=== PATIENT | female | born 1930 | race Caucasian/White ===

== ENCOUNTER → 2017-02-08 | Outpatient (CLI) | payer OTHER ==
[~2017-02-08] MED LIST: AMLO10TA2 PO; ESTR0.3T PO; LEVO50TA5 PO; LOSA1TAB18 PO; LOVA10TA PO; OMEP-110 PO; OXYB5TAB7 PO
== END | disposition home or self-care (01) ==
LOC: RAD 15:24
PROVIDERS: ATTEND Internal Medicine
DX: G31.89 Other specified degenerative diseases of nervous system (principal); I67.82 Cerebral ischemia; R90.82 White matter disease, unspecified; H53.2 Diplopia
CPT/HCPCS: 70450

== ENCOUNTER 2017-06-18 12:44 | Inpatient (IN) | payer OTHER ==
[~2017-06-18] VITALS: Ht 162.6 cm; Wt 61.0 kg
[2017-06-18] MEDS ORDERED: SODIUM CHLORIDE FLUSH 10ML SYR IVF ONE (13:30)
[2017-06-18] MEDS ORDERED: ASPIRIN 81 MG TABLET CHEW PO ONE (13:30)
[2017-06-18 13:38] LABS: HEMATOCRIT 39.9 % (34.6-47.8); HEMOGLOBIN 13.6 g/dL (11.7-16.4); WHITE BLOOD COUNT 5.8 x10^3/uL (3.4-10)
[2017-06-18] MEDS ORDERED: ASPIRIN 81 MG TABLET CHEW ONE (13:42)
[2017-06-18 13:50] LABS: ASPARTATE AMINO TRANSFERASE 13 U/L (15-37); BLOOD UREA NITROGEN 13 mg/dL (7-18)
[2017-06-18 13:55] LABS: IS PT STATUS REG ER OR PRE ER? YES
[2017-06-18] MEDS ORDERED: LOSA100T6 PO (14:14)
[2017-06-18] MEDS ORDERED: NITROGLYCERIN SINGLE TAB 0.4 MG SL ONE ×2 (14:30→15:09)
[2017-06-18] MEDS ORDERED: OMNIPAQUE 350 MG/ML, 100ML BOTTLE ONE (15:51)
[2017-06-18] MEDS ORDERED: DOCUSATE 100 MG CAPSULE PO PRN (16:00)
[2017-06-18] MEDS ORDERED: POLYETHYLENE GLYCOL 17 GM PACKET PO PRN (16:00)
[2017-06-18] MEDS ORDERED: NITROGLYCERIN 0.4 MG BOTTLE (25 TABS) SL PRN (16:00)
[2017-06-18] MEDS ORDERED: LABETALOL 5MG/ML, 20ML IVPush PRN (16:00)
[2017-06-18] MEDS ORDERED: ACETAMINOPHEN 325 MG TABLET PO PRN (16:00)
[2017-06-18] MEDS ORDERED: HYDROcodone/APAP 5/325 TABLET PO PRN (16:00)
[2017-06-18] MEDS ORDERED: ENOXAPARIN 40 MG/0.4 ML SQ SCH (16:00)
[2017-06-18] MEDS ORDERED: morphine SULFATE 10 MG/ML, 1ML IVPush PRN (16:00)
[2017-06-18] MEDS ORDERED: ONDANSETRON 2MG/ML, 2ML IVPush PRN (16:00)
[2017-06-18] MEDS ORDERED: BISACODYL 10 MG SUPP PR PRN (16:00)
[2017-06-18 16:30] VITALS: BP 128/68
[2017-06-18 18:26] LABS: IS PT STATUS REG ER OR PRE ER? NO
[2017-06-18] MEDS ORDERED: SIMVASTATIN 5 MG TABLET PO SCH (21:00)
[2017-06-18 21:22] VITALS: BP 125/70
[2017-06-18] MEDS: SODIUM CHLORIDE FLUSH 10ML SYR IVF SCH (21:26)
[2017-06-19 00:48] VITALS: BP 103/58
[2017-06-19 00:52] LABS: IS PT STATUS REG ER OR PRE ER? NO
[2017-06-19] MEDS ORDERED: LEVOTHYROXINE 50 MCG TABLET PO SCH (06:00)
[2017-06-19] MEDS ORDERED: ASPIRIN 325 MG TABLET EC PO SCH (06:00)
[2017-06-19 07:30] VITALS: BP 133/69
[2017-06-19] MEDS ORDERED: REGADENOSON 0.4 MG/5 ML SYRINGE ONE (08:14)
[2017-06-19] MEDS: SODIUM CHLORIDE FLUSH 10ML SYR IVF SCH (08:36)
[2017-06-19] MEDS ORDERED: AMLODIPINE 5 MG TABLET PO SCH (09:00)
[2017-06-19] MEDS ORDERED: LOSARTAN 50MG TABLET PO SCH (09:00)
[2017-06-19] MEDS ORDERED: OXYBUTYNIN CHLORIDE 5 MG TABLET PO SCH (09:00)
== END 2017-06-19 15:07 | disposition home or self-care (01) | DRG 313 ==
LOC: ED 15:02 → EDIP 15:22 → 5SO 16:21
PROVIDERS: ADMIT Internal Medicine; ATTEND Internal Medicine
DX: R07.89 Other chest pain (principal); I11.9 Hypertensive heart disease without heart failure; E03.9 Hypothyroidism, unspecified; K21.9 Gastro-esophageal reflux disease without esophagitis; E78.00 Pure hypercholesterolemia, unspecified; E78.5 Hyperlipidemia, unspecified; R79.1 Abnormal coagulation profile; G89.29 Other chronic pain; M54.9 Dorsalgia, unspecified; M79.605 Pain in left leg; M79.602 Pain in left arm; Z82.49 Family history of ischemic heart disease and other diseases of the circulatory system
CPT/HCPCS: 36415; 71010; 71275; 78452; 80053; 80061; 84484; 85025; 85379; 93005; 93017; 99285; J1650; J2785; Q9967; A9502; C9898

== ENCOUNTER 2018-08-15 14:37 | Emergency (ER) | payer OTHER ==
[~2018-08-15] VITALS: Ht 162.6 cm; Wt 59.2 kg
[~2018-08-15 14:37] MED LIST changes: -AMLO10TA2 PO; +AMLO10TA6 PO; +LOSA100T7 PO; -LOSA1TAB18 PO; +LOSA1TAB25 PO
[2018-08-15 14:48] VITALS: BP 124/62
== END 2018-08-15 16:42 | disposition home or self-care (01) ==
LOC: ED 16:36
DX: S46.912A Strain of unspecified muscle, fascia and tendon at shoulder and upper arm level, left arm, initial encounter (principal); M75.31 Calcific tendinitis of right shoulder; I10 Essential (primary) hypertension; G89.29 Other chronic pain; K21.9 Gastro-esophageal reflux disease without esophagitis; E78.00 Pure hypercholesterolemia, unspecified; E03.9 Hypothyroidism, unspecified; X58.XXXA Exposure to other specified factors, initial encounter; Y93.89 Activity, other specified; Y92.89 Other specified places as the place of occurrence of the external cause; Y99.8 Other external cause status
CPT/HCPCS: 99284

== ENCOUNTER → 2019-01-01 | Outpatient (CLI) | payer MEDICARE ==
[~2019-01-01] MED LIST changes: -AMLO10TA6 PO; +AMLO10TA8 PO; +LOSA100T14 PO; -LOSA100T7 PO
== END | disposition home or self-care (01) ==
LOC: CFH 16:01
PROVIDERS: ATTEND Internal Medicine
DX: L53.9 Erythematous condition, unspecified (principal); M79.605 Pain in left leg; R60.9 Edema, unspecified